=== PATIENT | male | born 1970 | race African-American/Black ===

== ENCOUNTER 2019-10-20 11:16 | Emergency (ER) | payer BC ==
[~2019-10-20] VITALS: Ht 182.9 cm; Wt 95.4 kg
[~2019-10-20 11:16] MED LIST: AMLO10TA8 PO; LISI-334 PO; OMEP20CA16 PO
[2019-10-20 11:33] VITALS: BP 166/89
[2019-10-20] MEDS ORDERED: MORPHINE SULFATE 4 MG/ML VIAL. IV ONE (12:00)
[2019-10-20] MEDS ORDERED: IV NORMAL SALINE 1000ML BAG 1,000 ML IV ONE (12:00)
[2019-10-20] MEDS ORDERED: ONDANSETRON PF 4 MG/2 ML VIAL. IVP ONE (12:00)
[2019-10-20 12:28] LABS: CALCIUM 9.5 mg/dL (8.5-10.1); CREATININE 2.2 mg/dL (0.7-1.3); GFR 38.7; POTASSIUM 4.1 mmol/L (3.5-5.1)
[2019-10-20 12:32] LABS: BASO % 0 % (0-3); EOS % 0 % (0-3); HEMATOCRIT 45.4 % (39.0-53.0); HEMOGLOBIN 15.9 g/dL (13.0-17.5); LYMPH # 1.8 x10^3/uL (1.0-4.8); LYMPH % 15 % (24-48); MEAN CORPUSCULAR HEMOGLOBIN 35 pg (25-35); MEAN CORPUSCULAR HGB CONC 35 g/dL (31-37); MEAN CORPUSCULAR VOLUME 100 fL (79-100); MONO # 0.9 x10^3/uL (0.0-1.1); MONO % 7 % (0-9); NEUT # 9.9 x10^3/uL (1.8-7.7); NEUT % 78 % (31-73); PLATELET COUNT 265 x10^3/uL (140-400); RED BLOOD COUNT 4.55 x10^6/uL (4.30-5.70); RED CELL DISTRIBUTION WIDTH 13.2 % (11.5-14.5); WHITE BLOOD COUNT 12.7 x10^3/uL (4.0-11.0)
[2019-10-20 12:38] LABS: ALBUMIN 4.3 g/dL (3.4-5.0); TOTAL BILIRUBIN 0.9 mg/dL (0.2-1.0); TOTAL PROTEIN 8.7 g/dL (6.4-8.2)
[2019-10-20] MEDS ORDERED: fentaNYL PF VIAL 100 MCG/2 ML VIAL IVP ONE (13:15)
[2019-10-20 13:32] LABS: BILIRUBIN,URINE NEGATIVE (NEG); CLARITY,URINE CLEAR; COLOR,URINE YELLOW; NITRITE,URINE NEGATIVE (NEG); PH,URINE 5.5 (<5.0-8.0); PROTEIN,URINE 30 mg/dL (NEG-TRACE); UROBILINOGEN,URINE 0.2 mg/dL (0.2 mg/dL)
[2019-10-20 13:50] LABS: BACTERIA,URINE 0 /HPF (0-FEW); RBC,URINE 0 /HPF (0-2); SQUAMOUS EPITHELIAL CELL,UR OCC /LPF; WBC,URINE 0 /HPF (0-4)
[2019-10-20] MEDS ORDERED: HYDROmorphone 2 MG/ML VIAL IV ONE (14:15)
--- NOTE | 2019-10-20 14:37 | RAD ---
EXAM: Abdomen and pelvis CT without intravenous contrast. HISTORY: Pain. TECHNIQUE: Computed tomographic images of the abdomen and pelvis were obtained without contrast. Multiplanar reformatting was performed. *One or more of the following individualized dose reduction techniques were utilized for this examination: 1. Automated exposure control. 2. Adjustment of the mA and/or kV according to patient size. 3. Use of iterative reconstruction technique. COMPARISON: 10/19/2019. FINDINGS: Evaluation of the lower thorax demonstrates no infiltrate or pleural effusion. The heart is normal in size. No hepatic lesion is seen. The gallbladder, pancreas, spleen and adrenal glands are unremarkable. There is no hydronephrosis or convincing solid or cystic renal lesion on this noncontrast exam. The bladder wall is thickened due to underdistention. The appendix is prominent in caliber, measuring 7 mm. However, there is gas within a portion of the appendiceal lumen and no significant surrounding stranding or lymphadenopathy. The combination of these findings favors a physiologic etiology rather than appendicitis. There is no bowel obstruction. There is no abnormal bowel wall thickening. There is aortobiiliac atherosclerosis. There is no suspicious osseous lesion. There are degenerative changes involving the lumbar spine. IMPRESSION: 1. Stable prominent appendiceal caliber. The absence of significant surrounding stranding, absence of significant surrounding lymphadenopathy and presence of gas within the appendiceal lumen favors a physiologic etiology rather than appendicitis. Correlate with physical exam findings and laboratory values. 2. Bladder wall thickening likely due to relative under distention. Electronically signed by: Kenzie Carrasco MD (10/20/2019 2:34 PM) [id number]
--- NOTE | 2019-10-20 14:48 | PHYS DOC ---
Past Medical History Past Medical History: Hypertension Past Surgical History: Other Additional Past Surgical Histo: CARDIAC-UNKNOWN Smoking Status: Current Every Day Smoker Alcohol Use: Heavy General Adult EDM: Chief Complaint: ABDOMINAL PAIN HPI: HPI: Patient is a 48 year old male who presents with complaints of vomiting several times over the past 3 days, also complains that he has not had a bowel movement in over 2 days. Patient states he usually has a normal bowel movement every day. Patient denies any diarrhea. Complains of generalized abdominal pain which started after his vomiting that he rates at 10/10. Patient describes this pain is a burning and cramping sensation. Patient denies any fever chills, patient denies any recent exposure to COVID-19. Patient reports that he has been told that he has a history of pancreatitis, but states he does not drink alcohol so he is not sure why he was ever diagnosed with this. Patient denies any changes in visual acuity, any nasal congestion or sore throat, cough or shortness of breath. Patient denies any pain in his chest or swelling of his extremities. Patient denies any problems urinating, denies back pain or pain in his joints. Patient denies any skin rashes, headaches, focal weaknesses, or sensory changes. Patient denies any swelling of his glands, any increased thirst or increased urination. Patient denies any recent life changes, any anxieties or depressions. Patient denies any homicidal suicidal ideations. Review of Systems: Review of Systems: Constitutional: Denies fever or chills. Eyes: Denies change in visual acuity. HENT: Denies nasal congestion or sore throat. Respiratory: Denies cough or shortness of breath. Cardiovascular: Denies chest pain or edema. GI: Patient complains of generalized abdominal pain and cramping with nausea and vomiting clear vomitus several times over the past 3 days denies constipation, blood in the stool, or diarrhea : Denies dysuria. Musculoskeletal: Denies back pain or joint pain. Integument: Denies rash. Neurologic: Denies headache, focal weakness or sensory changes. Endocrine: Denies polyuria or polydipsia. Lymphatic: Denies swollen glands. Psychiatric: Denies depression or anxiety. Patient denies recent life changes, denies homicidal or suicidal ideation. Heart Score: Risk Factors: Risk Factors: DM, Current or recent (<one month) smoker, HTN, HLP, family history of CAD, obesity. Risk Scores: Score 0 - 3: 2.5% MACE over next 6 weeks - Discharge Home Score 4 - 6: 20.3% MACE over next 6 weeks - Admit for Clinical Observation Score 7 - 10: 72.7% MACE over next 6 weeks - Early Invasive Strategies Family History: Family History: Patient states that his mother had a history of congestive heart failure but has since , patient states he does not know the health history of his father, who is . Current Medications: Current Medications Medications (Trade) Dose Ordered Sig/Amy Start Time Stop Time Status Last Admin Dose Admin Fentanyl Citrate (Fentanyl 2ml Vial) 50 mcg 1X ONCE 10/20/19 13:15 10/20/19 13:16 DC 10/20/19 13:22 50 MCG Hydromorphone HCl (Dilaudid) 1 mg 1X ONCE 10/20/19 14:15 10/20/19 14:17 DC 10/20/19 14:38 1 MG Morphine Sulfate (Morphine Sulfate) 4 mg 1X ONCE 10/20/19 12:00 10/20/19 12:05 DC 10/20/19 12:38 4 MG Ondansetron HCl (Zofran) 4 mg 1X ONCE 10/20/19 12:00 10/20/19 12:05 DC 10/20/19 12:38 4 MG Sodium Chloride 1,000 ml @ 1,000 mls/hr 1X ONCE 10/20/19 12:00 10/20/19 12:59 DC 10/20/19 12:37 1,000 MLS/HR Allergies: Allergies: Allergies Coded Allergies Type Severity Reaction Last Updated Verified No Known Drug Allergies 03/30/19 No Physical Exam: PE: Constitutional: Well developed, well nourished, no acute distress, non-toxic appearance. Non-concerning for COVID-19. HENT: Normocephalic, atraumatic, bilateral external ears normal, oropharynx moist, no oral exudates, nose normal. Eyes: PERRLA, EOMI, conjunctiva normal, no discharge. 4 mm. Neck: Normal range of motion, no tenderness, supple, no stridor. Cardiovascular:Heart rate regular rhythm, no murmur, heart sounds S1-S2, no abnormalities noted per auscultation. Lungs & Thorax: Bilateral breath sounds clear to auscultation all lung newell. Abdomen: Bowel sounds normal all 4 quadrants to auscultation. Abdomen soft, with generalized tenderness to all 4 quadrants, without McBurney's point tenderness without psoas sign, without rebound tenderness. no masses, no pulsatile masses. Skin: Warm, dry, no erythema, no rash. Back: No tenderness, no CVA tenderness. Extremities: No tenderness, no cyanosis, no clubbing, ROM intact, no edema. Neurologic: Alert and oriented X 3, normal motor function, normal sensory function, no focal deficits noted. Psychologic: Affect normal, judgement normal, mood normal. Current Patient Data: Labs: Laboratory Tests Test 10/20/19 12:10 10/20/19 13:19 White Blood Count 12.7 x10^3/uL (4.0-11.0) H Red Blood Count 4.55 x10^6/uL (4.30-5.70) Hemoglobin 15.9 g/dL (13.0-17.5) Hematocrit 45.4 % (39.0-53.0) Mean Corpuscular Volume 100 fL (79-100) Mean Corpuscular Hemoglobin 35 pg (25-35) Mean Corpuscular Hemoglobin Concent 35 g/dL (31-37) Red Cell Distribution Width 13.2 % (11.5-14.5) Platelet Count 265 x10^3/uL (140-400) Neutrophils (%) (Auto) 78 % (31-73) H Lymphocytes (%) (Auto) 15 % (24-48) L Monocytes (%) (Auto) 7 % (0-9) Eosinophils (%) (Auto) 0 % (0-3) Basophils (%) (Auto) 0 % (0-3) Neutrophils # (Auto) 9.9 x10^3/uL (1.8-7.7) H Lymphocytes # (Auto) 1.8 x10^3/uL (1.0-4.8) Monocytes # (Auto) 0.9 x10^3/uL (0.0-1.1) Eosinophils # (Auto) 0.0 x10^3/uL (0.0-0.7) Basophils # (Auto) 0.0 x10^3/uL (0.0-0.2) Sodium Level 132 mmol/L (136-145) L Potassium Level 4.1 mmol/L (3.5-5.1) Chloride Level 94 mmol/L (98-107) L Carbon Dioxide Level 28 mmol/L (21-32) Anion Gap 10 (6-14) Blood Urea Nitrogen 37 mg/dL (8-26) H Creatinine 2.2 mg/dL (0.7-1.3) H Estimated GFR (Cockcroft-Gault) 38.7 BUN/Creatinine Ratio 17 (6-20) Glucose Level 121 mg/dL (70-99) H Calcium Level 9.5 mg/dL (8.5-10.1) Total Bilirubin 0.9 mg/dL (0.2-1.0) Aspartate Amino Transferase (AST) 25 U/L (15-37) Alanine Aminotransferase (ALT) 33 U/L (16-63) Alkaline Phosphatase 96 U/L (46-116) Total Protein 8.7 g/dL (6.4-8.2) H Albumin 4.3 g/dL (3.4-5.0) Albumin/Globulin Ratio 1.0 (1.0-1.7) Lipase 50 U/L (73-393) L Urine Collection Type Void Urine Color Yellow Urine Clarity Clear Urine pH 5.5 (<5.0-8.0) Urine Specific [place] 1.025 (1.000-1.030) Urine Protein 30 mg/dL (NEG-TRACE) Urine Glucose (UA) Negative mg/dL (NEG) Urine Ketones (Stick) Trace mg/dL (NEG) Urine Blood Negative (NEG) Urine Nitrite Negative (NEG) Urine Bilirubin Negative (NEG) Urine Urobilinogen Dipstick 0.2 mg/dL (0.2 mg/dL) Urine Leukocyte Esterase Negative (NEG) Urine RBC 0 /HPF (0-2) Urine WBC 0 /HPF (0-4) Urine Squamous Epithelial Cells Occ /LPF Urine Bacteria 0 /HPF (0-FEW) Urine Mucus Slight /LPF Laboratory Tests 10/20/19 12:10 Laboratory Tests 10/20/19 12:10 Vital Signs: Vital Signs Date Time Temp Pulse Resp B/P (MAP) Pulse Ox O2 Delivery O2 Flow Rate FiO2 10/20/19 11:33 97.7 108 18 166/89 (114) 100 Room Air 97.7 EKG: EKG: [] Radiology/Procedures: Radiology/Procedures: PROCEDURE: CT ABDOMEN PELVIS WO CONTRAST EXAM: Abdomen and pelvis CT without intravenous contrast. HISTORY: Pain. TECHNIQUE: Computed tomographic images of the abdomen and pelvis were obtained without contrast. Multiplanar reformatting was performed. *One or more of the following individualized dose reduction techniques were utilized for this examination: 1. Automated exposure control. 2. Adjustment of the mA and/or kV according to patient size. 3. Use of iterative reconstruction technique. COMPARISON: 10/19/2019. FINDINGS: Evaluation of the lower thorax demonstrates no infiltrate or pleural effusion. The heart is normal in size. No hepatic lesion is seen. The gallbladder, pancreas, spleen and adrenal glands are unremarkable. There is no hydronephrosis or convincing solid or cystic renal lesion on this noncontrast exam. The bladder wall is thickened due to underdistention. The appendix is prominent in caliber, measuring 7 mm. However, there is gas within a portion of the appendiceal lumen and no significant surrounding stranding or lymphadenopathy. The combination of these findings favors a physiologic etiology rather than appendicitis. There is no bowel obstruction. There is no abnormal bowel wall thickening. There is aortobiiliac atherosclerosis. There is no suspicious osseous lesion. There are degenerative changes involving the lumbar spine. IMPRESSION: 1. Stable prominent appendiceal caliber. The absence of significant surrounding stranding, absence of significant surrounding lymphadenopathy and presence of gas within the appendiceal lumen favors a physiologic etiology rather than appendicitis. Correlate with physical exam findings and laboratory values. 2. Bladder wall thickening likely due to relative under distention. Electronically signed by: Kenzie Carrasco MD (10/20/2019 2:34 PM) [id number] Course & Med Decision Making: Course & Med Decision Making Pertinent Labs and Imaging studies reviewed. (See chart for details) 48-year-old male patient presents emergency department with complaints of several bouts of vomiting clear fluids. Patient states he was at [facility] yesterday and they could not figure out what was going on so he decided to come here and see if we could figure out what is going on. Patient states that a few weeks ago he ate some codfish and immediately started throwing up with having a nonstop feeling of nausea. Vital signs were reviewed, labs reviewed, not concerning for infectious process, imaging obtained from [facility] concerning for possible early appendicitis, imaging ordered here was not concerning for infectious process, discussed with patient findings and need to follow-up with GI specialist. Patient states that he would like a prescription for pain medicines to go home and he would follow-up with a GI specialist soon. Patient did not have any vomiting episodes during the emergency department stay. Upon reexamination patient states he feels a lot better, no abdominal pain noted upon reexamination. Discussed with patient discharge planning to go home with prescription of 10 count Vicodin 5/325. Patient is to follow-up with GI specialist soon, discussed return to emergency department concerns, patient was agreeable to discharge planning, had no further questions or concerns, patient discharged home. Dragon Disclaimer: [email or web address] Disclaimer: This electronic medical record was generated, in whole or in part, using a voice recognition dictation system. 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 Scripts Hydrocodone/Apap 5-325 (NORCO 5-325 TABLET) 1 Each Tablet 1 TAB PO PRN Q6HRS PRN for PAIN, #10 TAB 0 Refills Prov: NGOZI KIDD APRN 10/20/19 Justicifation of Admission Dx: Justifications for Admission: Justification of Admission Dx: N/A NGOZI KIDD APRN Oct 20, 2019 14:48
[2019-10-20] MEDS ORDERED: HYDR-3164 PO (15:45)
== END 2019-10-20 16:21 | disposition home or self-care (01) ==
LOC: ER 11:16
DX: R10.84 Generalized abdominal pain (principal); R11.2 Nausea with vomiting, unspecified; I10 Essential (primary) hypertension; F17.200 Nicotine dependence, unspecified, uncomplicated; F10.10 Alcohol abuse, uncomplicated; Z98.890 Other specified postprocedural states
CPT/HCPCS: 36415; 74176; 80053; 81001; 83690; 85025; 96361; 96374; 96375; 99284; J1170; J2270; J2405; J3010; J7030

== ENCOUNTER 2019-10-26 11:06 | Emergency (ER) | payer BC ==
[~2019-10-26] VITALS: Ht 182.9 cm; Wt 95.0 kg
[~2019-10-26 11:06] MED LIST changes: +HYDR-3164 PO
[2019-10-26] MEDS ORDERED: fentaNYL PF VIAL 100 MCG/2 ML VIAL IV ONE (12:45)
[2019-10-26] MEDS ORDERED: ONDANSETRON PF 4 MG/2 ML VIAL. IV ONE (12:45)
[2019-10-26] MEDS ORDERED: IV NORMAL SALINE 1000ML BAG 1,000 ML IV ONE ×2 (12:45→16:00)
[2019-10-26 12:50] LABS: BASO % 0 % (0-3); EOS % 0 % (0-3); HEMOGLOBIN 17.2 g/dL (13.0-17.5); LYMPH # 3.5 x10^3/uL (1.0-4.8); LYMPH % 25 % (24-48); MEAN CORPUSCULAR HEMOGLOBIN 34 pg (25-35); MEAN CORPUSCULAR HGB CONC 35 g/dL (31-37); MEAN CORPUSCULAR VOLUME 98 fL (79-100); MONO # 1.4 x10^3/uL (0.0-1.1); MONO % 10 % (0-9); NEUT # 9.3 x10^3/uL (1.8-7.7); NEUT % 65 % (31-73); PLATELET COUNT 308 x10^3/uL (140-400); RED BLOOD COUNT 5.03 x10^6/uL (4.30-5.70); RED CELL DISTRIBUTION WIDTH 12.9 % (11.5-14.5); WHITE BLOOD COUNT 14.3 x10^3/uL (4.0-11.0)
[2019-10-26 13:01] LABS: CALCIUM 9.9 mg/dL (8.5-10.1); CREATININE 1.8 mg/dL (0.7-1.3); GFR 48.8; POTASSIUM 3.9 mmol/L (3.5-5.1)
[2019-10-26 13:07] LABS: ALBUMIN 4.6 g/dL (3.4-5.0); MAGNESIUM 2.2 mg/dL (1.8-2.4); TOTAL BILIRUBIN 0.8 mg/dL (0.2-1.0); TOTAL PROTEIN 9.2 g/dL (6.4-8.2)
[2019-10-26] MEDS ORDERED: IOHEXOL 300 MG/ML 100ML VIAL. IV ONE (13:30)
[2019-10-26] MEDS ORDERED: CONTRAST GIVEN. MC PRN (13:45)
--- NOTE | 2019-10-26 13:57 | PHYS DOC ---
Past Medical History Past Medical History: Hypertension Past Surgical History: Other Additional Past Surgical Histo: CARDIAC-UNKNOWN Smoking Status: Current Every Day Smoker Alcohol Use: Heavy General Adult EDM: Chief Complaint: CONSTIPATION HPI: HPI: Patient is a 48 year old male who presents to the emergency department with generalized abdominal pain, constipation, decreased urination, decreased appetite and nausea and vomiting that started 2 days ago. Patient was seen in the emergency department October 20, 2019 and was treated for constipation and dehydration. He was sent home with magnesium citrate. He reports after drinking the magnesium citrate he did have a bowel movement but that was his last bowel movement 2 days ago. He reports that he has not urinated and has not had anything to eat in 2 days. Patient states that he has vomited 10 times today, there is no blood in his vomit. Patient denies cough, shortness of air, fever, diarrhea, and chest pain. Patient's abdominal pain is generalized. He rates it 10 out of 10, he has not tried any treatment at home, no aggravating or alleviating factors, he describes the abdominal pain as a constant punching pain. Review of Systems: Review of Systems: Constitutional: Denies fever or chills. [] Eyes: Denies change in visual acuity. [] HENT: Denies nasal congestion or sore throat. [] Respiratory: Denies cough or shortness of breath. [] Cardiovascular: Denies chest pain or edema. [] GI: See HPI : Denies dysuria. [] Musculoskeletal: Denies back pain or joint pain. [] Integument: Denies rash. [] Neurologic: Denies headache, focal weakness or sensory changes. [] Psychiatric: Denies depression or anxiety. [] Heart Score: Risk Factors: Risk Factors: DM, Current or recent (<one month) smoker, HTN, HLP, family history of CAD, obesity. Risk Scores: Score 0 - 3: 2.5% MACE over next 6 weeks - Discharge Home Score 4 - 6: 20.3% MACE over next 6 weeks - Admit for Clinical Observation Score 7 - 10: 72.7% MACE over next 6 weeks - Early Invasive Strategies Current Medications: Current Medications Medications (Trade) Dose Ordered Sig/Amy Start Time Stop Time Status Last Admin Dose Admin Fentanyl Citrate (Fentanyl 2ml Vial) 50 mcg 1X ONCE 10/26/19 12:45 10/26/19 12:46 DC 10/26/19 12:56 50 MCG Info (CONTRAST GIVEN -- Rx MONITORING) 1 each PRN DAILY PRN 10/26/19 13:45 10/28/19 13:44 Iohexol (Omnipaque 300 Mg/ml) 60 ml 1X ONCE 10/26/19 13:30 10/26/19 13:32 DC 10/26/19 13:30 60 ML Ondansetron HCl (Zofran) 4 mg 1X ONCE 10/26/19 12:45 10/26/19 12:46 DC 10/26/19 12:55 4 MG Sodium Chloride 1,000 ml @ 1,000 mls/hr 1X ONCE 10/26/19 12:45 10/26/19 13:44 DC 10/26/19 12:55 1,000 MLS/HR Allergies: Allergies: Allergies Coded Allergies Type Severity Reaction Last Updated Verified No Known Drug Allergies 03/30/19 No Physical Exam: PE: Constitutional: Well developed, well nourished, no acute distress, non-toxic appearance. [] HENT: Normocephalic, atraumatic, bilateral external ears normal, oropharynx dry, nose normal. [] Eyes: PERRLA, EOMI, conjunctiva normal, no discharge. [] Neck: Normal range of motion, no stridor. [] Cardiovascular:Heart rate regular rhythm, no murmur [] Lungs & Thorax: Bilateral breath sounds clear to auscultation, Respirations ev en and unlabored, no retractions, no respiratory distress [] Abdomen: Bowel sounds normal, soft, no masses, no pulsatile masses, tenderness with palpation of left upper and lower quadrant without rebound tenderness or guarding. [] Skin: Warm, dry, no erythema, no rash. [] Back: No tenderness, no CVA tenderness. [] Extremities: No tenderness, no cyanosis, no clubbing, ROM intact, no edema. [] Neurologic: Alert and oriented X 3, no focal deficits noted. [] Psychologic: Affect normal, judgement normal, mood normal. [] Current Patient Data: Labs: Laboratory Tests Test 10/26/19 12:30 White Blood Count 14.3 x10^3/uL (4.0-11.0) H Red Blood Count 5.03 x10^6/uL (4.30-5.70) Hemoglobin 17.2 g/dL (13.0-17.5) Hematocrit 49.0 % (39.0-53.0) Mean Corpuscular Volume 98 fL (79-100) Mean Corpuscular Hemoglobin 34 pg (25-35) Mean Corpuscular Hemoglobin Concent 35 g/dL (31-37) Red Cell Distribution Width 12.9 % (11.5-14.5) Platelet Count 308 x10^3/uL (140-400) Neutrophils (%) (Auto) 65 % (31-73) Lymphocytes (%) (Auto) 25 % (24-48) Monocytes (%) (Auto) 10 % (0-9) H Eosinophils (%) (Auto) 0 % (0-3) Basophils (%) (Auto) 0 % (0-3) Neutrophils # (Auto) 9.3 x10^3/uL (1.8-7.7) H Lymphocytes # (Auto) 3.5 x10^3/uL (1.0-4.8) Monocytes # (Auto) 1.4 x10^3/uL (0.0-1.1) H Eosinophils # (Auto) 0.0 x10^3/uL (0.0-0.7) Basophils # (Auto) 0.0 x10^3/uL (0.0-0.2) Sodium Level 127 mmol/L (136-145) L Potassium Level 3.9 mmol/L (3.5-5.1) Chloride Level 88 mmol/L (98-107) L Carbon Dioxide Level 31 mmol/L (21-32) Anion Gap 8 (6-14) Blood Urea Nitrogen 31 mg/dL (8-26) H Creatinine 1.8 mg/dL (0.7-1.3) H Estimated GFR (Cockcroft-Gault) 48.8 BUN/Creatinine Ratio 17 (6-20) Glucose Level 108 mg/dL (70-99) H Calcium Level 9.9 mg/dL (8.5-10.1) Magnesium Level 2.2 mg/dL (1.8-2.4) Total Bilirubin 0.8 mg/dL (0.2-1.0) Aspartate Amino Transferase (AST) 19 U/L (15-37) Alanine Aminotransferase (ALT) 32 U/L (16-63) Alkaline Phosphatase 100 U/L (46-116) Total Protein 9.2 g/dL (6.4-8.2) H Albumin 4.6 g/dL (3.4-5.0) Albumin/Globulin Ratio 1.0 (1.0-1.7) Lipase 55 U/L (73-393) L Laboratory Tests 10/26/19 12:30 Laboratory Tests 10/26/19 12:30 Vital Signs: Vital Signs Date Time Temp Pulse Resp B/P (MAP) Pulse Ox O2 Delivery O2 Flow Rate FiO2 10/26/19 12:56 Room Air 10/26/19 12:40 98.8 90 18 148/78 (101) 100 98.8 EKG: EKG: [] Radiology/Procedures: Radiology/Procedures: PROCEDURE: CT ABD PELV W/ IV CONTRST ONLY CT ABD PELV W/ IV CONTRST ONLY History: Reason: left sided abdominal pain / Spl. Instructions: OMNI 300 INJ 60 MLS / History: Technique: After the administration of intravenous contrast, CT imaging was performed of the abdomen and pelvis. Multiplanar images are reviewed. Exposure: One or more of the following individualized dose reduction techniques were utilized for this examination: 1. Automated exposure control 2. Adjustment of the mA and/or kV according to patient size 3. Use of iterative reconstruction technique. Comparison: October 20, 2019 Findings: Lower chest: No consolidation or pleural effusion. Abdomen and pelvis: Fatty infiltration along the falciform ligament. Tiny right inferior hepatic hypodensity, too small to further characterize. The spleen, adrenal glands, pancreas and gallbladder are unremarkable. No biliary ductal dilatation. Patent portal veins. Normal transit the kidneys. No hydronephrosis. No renal calculi. Normal appearance of the appendix with decreased caliber compared to prior. No adjacent inflammatory changes. No evidence of bowel obstruction. Mild ectasia of the infrarenal abdominal aorta measures 2.4 cm. Scattered atheromatous plaque. No pathologic lymphadenopathy. No ascites. Small fat-containing umbilical hernia. Bones: Multilevel lumbar spinal stenosis most prominent L5-S1. Impression: 1. No acute abdominal or pelvic pathology. [] Course & Med Decision Making: Course & Med Decision Making Pertinent Labs and Imaging studies reviewed. (See chart for details) Patient is a 48-year-old male coming in for abdominal pain, nausea vomiting, con stipation for 2 days. Work-up includes blood work, UA and a CT abdomen and pelvis. CBC is unremarkable, CMP shows a sodium of 127, BUN of 31, and creatinine of 1.8, UA unremarkable, CT abdomen and pelvis with IV contrast was unremarkable for any acute problem. Patient was dehydrated and was given 2 L of normal saline, 4 mg of Zofran for nausea and he received a total of 100 mics of fentanyl for pain. Patient reports that he feels better at this time and is ready to go home. Patient is able to maintain PO liquids. Prescription is written for Zofran, recommended clear liquids followed by brat diet and advance as tolerated. Patient verbalized an understanding of home care, medications, follow-up, and return to ED instructions and was in agreement with the plan of care. [] Dragon Disclaimer: Dragon Disclaimer: This electronic medical record was generated, in whole or in part, using a voice recognition dictation system. Departure Departure Impression: Primary Impression: Nausea & vomiting Qualified Codes: R11.2 - Nausea with vomiting, unspecified Additional Impressions: Dehydration Abdominal pain Qualified Codes: R10.84 - Generalized abdominal pain Disposition: 01 HOME, SELF-CARE Condition: STABLE Referrals: NO PCP (PCP) Patient Instructions: Abdominal Pain (Nonspecific), Dehydration, Adult, [id number], Nausea and Vomiting, [id number] Additional Instructions: Fill prescriptions and use them as directed. Recommend clear fluids for the next 24 hours. Then you may advance to bland foods such as bananas, rice, applesauce, and dry toast. Follow-up with your primary care doctor in the next 1-2 days. Return to the emergency room if your symptoms worsen. [facility] [address] [place] [address] [facility] [address] [place] [address] [facility] [address] [facility] [place] [address] [facility] [address] [place] [address] [facility] [address] [place] [address] [facility] [address] [place] [address] [address] [place] [address] [employer] [facility] [employer] [place] [address] [place] [address] [employer] [facility] [address] [place] [address] [facility] [address] [place] [address] Scripts Ondansetron Hcl (ONDANSETRON HCL) 4 Mg Tablet 1 TAB PO PRN Q6HRS PRN for NAUSEA/VOMITING for 3 Days, #10 TAB 0 Refills Prov: BRIAN ANTONIO D[employer]NUT BATTER MIXER 10/26/19 Justicifation of Admission Dx: Justifications for Admission: Justification of Admission Dx: N/A BRIAN ANTONIO D[employer]TER MIXER Oct 26, 2019 13:57
[2019-10-26] MEDS ORDERED: fentaNYL PF VIAL 100 MCG/2 ML VIAL IVP ONE (14:30)
--- NOTE | 2019-10-26 14:33 | RAD ---
CT ABD PELV W/ IV CONTRST ONLY History: Reason: left sided abdominal pain / Spl. Instructions: OMNI 300 INJ 60 MLS / History: Technique: After the administration of intravenous contrast, CT imaging was performed of the abdomen and pelvis. Multiplanar images are reviewed. Exposure: One or more of the following individualized dose reduction techniques were utilized for this examination: 1. Automated exposure control 2. Adjustment of the mA and/or kV according to patient size 3. Use of iterative reconstruction technique. Comparison: October 20, 2019 Findings: Lower chest: No consolidation or pleural effusion. Abdomen and pelvis: Fatty infiltration along the falciform ligament. Tiny right inferior hepatic hypodensity, too small to further characterize. The spleen, adrenal glands, pancreas and gallbladder are unremarkable. No biliary ductal dilatation. Patent portal veins. Normal transit the kidneys. No hydronephrosis. No renal calculi. Normal appearance of the appendix with decreased caliber compared to prior. No adjacent inflammatory changes. No evidence of bowel obstruction. Mild ectasia of the infrarenal abdominal aorta measures 2.4 cm. Scattered atheromatous plaque. No pathologic lymphadenopathy. No ascites. Small fat-containing umbilical hernia. Bones: Multilevel lumbar spinal stenosis most prominent L5-S1. Impression: 1. No acute abdominal or pelvic pathology. Electronically signed by: Omar Jose DO (10/26/2019 2:30 PM) [facility]
[2019-10-26 15:14] LABS: BILIRUBIN,URINE NEGATIVE (NEG); CLARITY,URINE CLEAR; COLOR,URINE YELLOW; NITRITE,URINE NEGATIVE (NEG); PROTEIN,URINE NEGATIVE (NEG-TRACE); UROBILINOGEN,URINE 0.2 mg/dL (0.2 mg/dL)
[2019-10-26 15:21] LABS: HYALINE CASTS, URINE MANY /HPF; SQUAMOUS EPITHELIAL CELL,UR FEW /LPF
[2019-10-26 15:23] LABS: BACTERIA,URINE 0 /HPF (0-FEW); RBC,URINE 0 /HPF (0-2)
[2019-10-26] MEDS ORDERED: ONDA-84 PO (16:25)
[2019-10-26 16:57] VITALS: BP 107/75
== END 2019-10-26 17:03 | disposition home or self-care (01) ==
LOC: ER 11:06
DX: E86.0 Dehydration (principal); R11.2 Nausea with vomiting, unspecified; R10.84 Generalized abdominal pain; I10 Essential (primary) hypertension; F17.200 Nicotine dependence, unspecified, uncomplicated; F10.20 Alcohol dependence, uncomplicated; Y90.9 Presence of alcohol in blood, level not specified
CPT/HCPCS: 36415; 74177; 80053; 81001; 83690; 83735; 85025; 96361; 96374; 96375; 96376; 99285; J2405; J3010; J7030; Q9967

== ENCOUNTER 2021-05-04 17:59 | Inpatient (IN) | payer BC, OTHER ==
[~2021-05-04] VITALS: Ht 182.9 cm; Wt 85.2 kg
[~2021-05-04 17:59] MED LIST changes: +AMLO-187 PO; -AMLO10TA8 PO; -LISI-334 PO; +LISI20TA18 PO; +ONDA-84 PO
[2021-05-04 20:00] VITALS: BP 107/54
--- NOTE | 2021-05-04 20:00 | NUR ---
The patient, AFSANEH WILKINSON, 50 y/o, M admitted by JEVON BARR MD, was given written information regarding hospital policies, unit procedures and contact persons. Valuables were checked and left with him.
[2021-05-04] MEDS ORDERED: LISI-130 PO (20:34)
[2021-05-04] MEDS ORDERED: ACETAMINOPHEN 325 MG TABLET. PO PRN (20:45)
[2021-05-04] MEDS ORDERED: ELECTROLYTE (NON-ICU) PROTOCOL. MC PRN (20:45)
[2021-05-04] MEDS ORDERED: oxyCODONE/APAP 5/325 1 TAB TABLET PO PRN (20:45)
[2021-05-04] MEDS ORDERED: CALCIUM CARBONATE 500 MG TAB.CHEW PO PRN (20:45)
[2021-05-04] MEDS ORDERED: ONDANSETRON PF 4 MG/2 ML VIAL. IVP PRN (20:45)
[2021-05-04] MEDS: SENNOSIDES/DOCUSATE 8.6/50MG TABLET. PO SCH (21:29)
[2021-05-04] MEDS: oxyCODONE/APAP 5/325 1 TAB TABLET PO PRN (21:29)
[2021-05-04] MEDS: ZOLPIDEM 5 MG TABLET. PO PRN (21:29)
[2021-05-04 21:32] LABS: BASO % 0 % (0-3); EOS % 0 % (0-3); HEMATOCRIT 42.1 % (39.0-53.0); HEMOGLOBIN 14.4 g/dL (13.0-17.5); LYMPH # 3.1 x10^3/uL (1.0-4.8); LYMPH % 24 % (24-48); MEAN CORPUSCULAR HEMOGLOBIN 34 pg (25-35); MEAN CORPUSCULAR HGB CONC 34 g/dL (31-37); MEAN CORPUSCULAR VOLUME 98 fL (79-100); MONO # 1.7 x10^3/uL (0.0-1.1); MONO % 13 % (0-9); NEUT % 62 % (31-73); PLATELET COUNT 267 x10^3/uL (140-400); RED BLOOD COUNT 4.28 x10^6/uL (4.30-5.70); RED CELL DISTRIBUTION WIDTH 13.7 % (11.5-14.5); WHITE BLOOD COUNT 12.9 x10^3/uL (4.0-11.0)
[2021-05-04] MEDS: HEPARIN for SUB-Q USE 5,000 UNIT/ML VIAL. SQ SCH (21:35)
--- NOTE | 2021-05-04 21:38 | PDOC1 ---
History and Physical Date of Service: DOS: DATE: 05/04/21 TIME: 21:30 Chief Complaint: Chief Complain: Nausea vomiting diarrhea History of Present Illness: HPI: Patient is a 50-year-old -[place] male presented to outside emergency department due to 5-day history of nausea vomiting decreased p.o. intake diarrhea and abdominal pain. Patient says the symptoms started after eating grilled chicken. Family at the same and are asymptomatic. Says he has had very decreased p.o. intake. Had not urinated in at least 72 hours until this morning when he tried to provide urine sample. At the outside hospital was found to have BUN up to 90 and creatinine above 12. Was recommended for transfer here and then. When I saw patient he was resting in bed complaining of bilateral flank pain. Somewhat confrontational. Asking about eating and drinking. Said his nausea and vomiting were improving somewhat with the fluids. Will check bladder scan to see if retaining any urine. Past Medical/Surgical History: PMH/PSH: Hypertension Allergies: Allergies: Coded Allergies: No Known Drug Allergies (Unverified , 03/30/19) Family History: Family History: Hypertension Social History: Social History: Denies alcohol tobacco use. Uses marijuana occasionally Current Medications: Current Medications Current Medications Ondansetron HCl (Zofran) 4 mg PRN Q6HRS PRN IVP NAUSEA/VOMITING Last administered on 05/04/21at 21:29; Start 05/04/21 at 20:45 Calcium Carbonate/ Glycine (Tums) 500 mg PRN Q3HRS PRN PO UPSET STOMACH; Start 05/04/21 at 20:45 Zolpidem Tartrate (Ambien) 5 mg PRN QHS PRN PO INSOMNIA, MAY REPEAT IN 1HR Last administered on 05/04/21at 21:29; Start 05/04/21 at 20:45 Info (Non-Icu Electrolyte Protocol) 1 ea PRN DAILY PRN MC SEE COMMENTS; Start 05/04/21 at 20:45 Oxycodone/ Acetaminophen (Percocet 5/325) 1 tab PRN Q4HRS PRN PO MILD PAIN, 1ST CHOICE; Start 05/04/21 at 20:45 Oxycodone/ Acetaminophen (Percocet 5/325) 2 tab PRN Q4HRS PRN PO MODERATE PAIN, SEVERE PAIN Last administered on 05/04/21at 21:29; Start 05/04/21 at 20:45 Acetaminophen (Tylenol) 650 mg PRN Q6HRS PRN PO Headaches, Temp > 101.5F; Start 05/04/21 at 20:45 Senna/Docusate Sodium (Senna Plus) 1 tab BID PO Last administered on 05/04/21at 21:29; Start 05/04/21 at 21:00 Heparin Sodium (Porcine) (Heparin Sodium) 5,000 unit Q8HRS SQ ; Start 05/04/21 at 22:00 Amlodipine Besylate (Norvasc) 10 mg DAILY PO ; Start 05/05/21 at 09:00 Pantoprazole Sodium (Protonix) 40 mg DAILYAC PO ; Start 05/05/21 at 07:30 Active Scripts Active Ondansetron Hcl 4 Mg Tablet 1 Tab PO PRN Q6HRS PRN 3 Days [place] 5-325 Tablet (Acetaminophen/Hydrocodone Bitart) 1 Each Tablet 1 Tab PO PRN Q6HRS PRN Reported Lisinopril 40 Mg Tablet 1 Tab PO DAILY Omeprazole 20 Mg Capsule.dr 20 Mg PO DAILY Amlodipine Besylate 10 Mg Tablet 10 Mg PO DAILY ROS: Review of Systems Review of System Unless noted in HPI 14 point review of systems was negative Physical Exam: Vital Signs: Vital Signs Date Time Temp Pulse Resp B/P (MAP) Pulse Ox O2 Delivery O2 Flow Rate FiO2 05/04/21 21:29 18 98 Room Air 05/04/21 20:00 98.2 81 107/54 (71) 98.2 Physcial Exam: GEN: No apparent distress. Alert and oriented HEENT: Normal cephalic, atraumatic, external auditory canals are patent EYES: Extraocular muscles are intact, pupil are equally round and reactive to light and accommodation MUSCULOSKELETAL: Well developed , well nourished, good range of motion ENDOCRINE: No thyromegaly was palpated LYMPHATICS: No cervical chain or axillary nodes were noted HEMATOPOIETIC: No bruising NECK: Supple, no JVD, no thyromegaly was noted LUNGS: Clear to auscultation in all lung newell without rhonchi or wheezing HEART: RRR, S!, S2 present. Peripheral pulses intact, no obvious murmurs noted ABDOMEN: Soft, nontender. Positive bowel sounds, no organomegaly, normal bowel sounds EXTREMITIES: Without clubbing, cyanosis, or edema. Pedal pulses intact. Negative Homans sign NEUROLOGIC: Normal speech and tone. A&O x 3, moves all extremities, no obvious focal deficits PSYCHIATRIC: Normal affect, normal mood. Stable SKIN: No ulcerations or rashes, good skin turgor, no jaundice VASCULAR: Good capillary refill, neurovascular bundle appears to be intact Labs: Labs: From outside hospital BUN 90, creatinine 12, anion gap 22, white blood cells 13.7 Assessment/Plan Assessment/Plan Acute kidney injury on CKD? Secondary to dehydration vasomotor nephropathy, history hypertension substance abuse -Patient transferred from [facility] for acute kidney injury. -Has previous labs from 2020 with elevated creatinine around 2. Baseline unknown right now. Labs from outside hospital showed a creatinine of 12. Repeat here -Nephrology consult -Urinalysis -Check bladder scan. Straight cath if needed -If retaining urine can try Flomax -DVT prophylaxis -Renal diet for now -Home meds resumed as indicated. Justifications for Admission Other Justification JEVON BARR MD May 04, 2021 21:37
[2021-05-04 21:47] LABS: ALBUMIN 3.7 g/dL (3.4-5.0); ALBUMIN/GLOBULIN RATIO 0.9 (1.0-1.7); CALCIUM 7.9 mg/dL (8.5-10.1); CREATININE 9.7 mg/dL (0.7-1.3); GFR 6.9; TOTAL BILIRUBIN 0.7 mg/dL (0.2-1.0); TOTAL PROTEIN 7.9 g/dL (6.4-8.2)
[2021-05-05 03:10] VITALS: BP 108/73
[2021-05-05 04:03] LABS: BILIRUBIN,URINE NEGATIVE (NEG); CLARITY,URINE CLEAR; COLOR,URINE YELLOW; NITRITE,URINE NEGATIVE (NEG); PROTEIN,URINE 30 mg/dL (NEG-TRACE); UROBILINOGEN,URINE 0.2 mg/dL (0.2 mg/dL)
[2021-05-05 04:41] LABS: BACTERIA,URINE 0 /HPF (0-FEW); HYALINE CASTS, URINE FEW /HPF; RBC,URINE OCC /HPF (0-2); WBC,URINE OCC /HPF (0-4)
[2021-05-05] MEDS: HEPARIN for SUB-Q USE 5,000 UNIT/ML VIAL. SQ SCH ×3 (05:29→20:54)
--- NOTE | 2021-05-05 06:55 | RAD ---
Renal ultrasound complete History: Reason: abran / Spl. Instructions: / History: Sonographic examination of the kidneys was performed and multiple static images were obtained. Right kidney: The right kidney is seen with no hydronephrosis and measures 10.3 cm in length. Left kidney: The left kidney is seen with no hydronephrosis and measures 10.3 cm in length. Urinary bladder: The urinary bladder is seen with bilateral ureteral jets. Impression: No hydronephrosis. Electronically signed by: Truman Waddell III, MD (05/05/2021 6:53 AM) [facility]
[2021-05-05 07:00] VITALS: BP 115/67
[2021-05-05] MEDS: PANTOPRAZOLE 40 MG TABLET.DR. PO SCH (09:00)
[2021-05-05] MEDS: SENNOSIDES/DOCUSATE 8.6/50MG TABLET. PO SCH ×2 (09:05→20:52)
--- NOTE | 2021-05-05 10:36 | PDOC ---
[employer] PROGRESS NOTE Date of Service DOS: DATE: 05/05/21 TIME: 10:34 Chief Complaint Chief Complaint GAGE versus chronic kidney disease Dehydration Hypertension Substance abuse History of Present Illness History of Present Illness 05/05/2021 Patient seen and examined Lambert discussed with RN Chart reviewed Discussed with case technician Vitals/I&O Vitals/I&O: Vital Signs Date Time Temp Pulse Resp B/P (MAP) Pulse Ox O2 Delivery O2 Flow Rate FiO2 05/05/21 09:04 67 115/67 05/05/21 08:00 Room Air 05/05/21 07:00 98.1 17 97 98.1 I & O 05/04/21 05/04/21 05/05/21 15:00 23:00 07:00 Intake Total 480 ml Output Total 1670 ml Balance -1190 ml Labs Labs: Laboratory Tests Test 05/04/21 21:15 05/05/21 02:55 05/05/21 07:49 White Blood Count 12.9 x10^3/uL (4.0-11.0) Red Blood Count 4.28 x10^6/uL (4.30-5.70) Hemoglobin 14.4 g/dL (13.0-17.5) Hematocrit 42.1 % (39.0-53.0) Mean Corpuscular Volume 98 fL (79-100) Mean Corpuscular Hemoglobin 34 pg (25-35) Mean Corpuscular Hemoglobin Concent 34 g/dL (31-37) Red Cell Distribution Width 13.7 % (11.5-14.5) Platelet Count 267 x10^3/uL (140-400) Neutrophils (%) (Auto) 62 % (31-73) Lymphocytes (%) (Auto) 24 % (24-48) Monocytes (%) (Auto) 13 % (0-9) Eosinophils (%) (Auto) 0 % (0-3) Basophils (%) (Auto) 0 % (0-3) Neutrophils # (Auto) 8.0 x10^3/uL (1.8-7.7) Lymphocytes # (Auto) 3.1 x10^3/uL (1.0-4.8) Monocytes # (Auto) 1.7 x10^3/uL (0.0-1.1) Eosinophils # (Auto) 0.0 x10^3/uL (0.0-0.7) Basophils # (Auto) 0.0 x10^3/uL (0.0-0.2) Sodium Level 138 mmol/L (136-145) Potassium Level 4.0 mmol/L (3.5-5.1) Chloride Level 96 mmol/L (98-107) Carbon Dioxide Level 24 mmol/L (21-32) Anion Gap 18 (6-14) Blood Urea Nitrogen 97 mg/dL (8-26) Creatinine 9.7 mg/dL (0.7-1.3) Estimated GFR (Cockcroft-Gault) 6.9 BUN/Creatinine Ratio 10 (6-20) Glucose Level 92 mg/dL (70-99) Calcium Level 7.9 mg/dL (8.5-10.1) Total Bilirubin 0.7 mg/dL (0.2-1.0) Aspartate Amino Transf (AST/SGOT) 5 U/L (15-37) Alanine Aminotransferase (ALT/SGPT) 22 U/L (16-63) Alkaline Phosphatase 95 U/L (46-116) Creatine Kinase 391 U/L (39-308) Total Protein 7.9 g/dL (6.4-8.2) Albumin 3.7 g/dL (3.4-5.0) Albumin/Globulin Ratio 0.9 (1.0-1.7) Thyroid Stimulating Hormone (TSH) 0.302 uIU/mL (0.358-3.74) Urine Collection Type Unknown Urine Color Yellow Urine Clarity Clear Urine pH 5.0 (<5.0-8.0) Urine Specific [place] 1.020 (1.000-1.030) Urine Protein 30 mg/dL (NEG-TRACE) Urine Glucose (UA) Negative mg/dL (NEG) Urine Ketones (Stick) Negative mg/dL (NEG) Urine Blood Negative (NEG) Urine Nitrite Negative (NEG) Urine Bilirubin Negative (NEG) Urine Urobilinogen Dipstick 0.2 mg/dL (0.2 mg/dL) Urine Leukocyte Esterase Negative (NEG) Urine RBC Occ /HPF (0-2) Urine WBC Occ /HPF (0-4) Urine Squamous Epithelial Cells Occ /LPF Urine Bacteria 0 /HPF (0-FEW) Urine Hyaline Casts Few /HPF Urine Mucus Mod /LPF Glucose (Fingerstick) 84 mg/dL (70-99) Assessment and Plan Assessmemt and Plan Acute kidney injury on CKD? Secondary to dehydration vasomotor nephropathy, history hypertension substance abuse -Patient transferred from [facility] for acute kidney injury. -Has previous labs from 2019 with elevated creatinine around 2. Baseline unknown right now. Labs from outside hospital showed a creatinine of 12. Repeat here -Await nephrology consult -Urinalysis -Check bladder scan. Straight cath if needed -If retaining urine can try Flomax -DVT prophylaxis -Renal diet for now -Home meds resumed as indicated. Comment Review of Relevant I have reviewed the following items cherelle (where applicable) has been applied. Medications: Current Medications Medications (Trade) Dose Ordered Sig/Amy Route PRN Reason Start Time Stop Time Status Last Admin Dose Admin Ondansetron HCl (Zofran) 4 mg PRN Q6HRS PRN IVP NAUSEA/VOMITING 05/04/21 20:45 05/04/21 21:29 Zolpidem Tartrate (Ambien) 5 mg PRN QHS PRN PO INSOMNIA, MAY REPEAT IN 1HR 05/04/21 20:45 05/04/21 21:29 Oxycodone/ Acetaminophen (Percocet 5/325) 2 tab PRN Q4HRS PRN PO MODERATE PAIN, SEVERE PAIN 05/04/21 20:45 05/04/21 21:29 Senna/Docusate Sodium (Senna Plus) 1 tab BID PO 05/04/21 21:00 05/05/21 09:05 Heparin Sodium (Porcine) (Heparin Sodium) 5,000 unit Q8HRS SQ 05/04/21 22:00 05/05/21 05:29 Amlodipine Besylate (Norvasc) 10 mg DAILY PO 05/05/21 09:00 05/05/21 09:04 Pantoprazole Sodium (Protonix) 40 mg DAILYAC PO 05/05/21 07:30 05/05/21 09:00 Justifications for Admission Other Justification MAGY SERRATO III DO May 05, 2021 10:36
[2021-05-05 11:00] VITALS: BP 123/79
[2021-05-05] MEDS: IV NORMAL SALINE 1000ML BAG 1,000 ML IV SCH ×2 (12:15→20:56)
--- NOTE | 2021-05-05 14:15 | PDOC2 ---
CONSULT Date of Consult Date of Consult DATE: 05/05/21 TIME: 14:07 Reason for Consult Reason for Consult: GAGE Referring Physician Referring Physician: MOMO Identification/Chief Complaint Chief Complaint N/V/D Source Source: Chart review, Patient History of Present Illness Reason for Visit: THIS IS A 50 YR OLD WITH N/V/D FOR ABOUT A WEEK. HAS NOTED DECREASING UO WELL. CR OF 9.7. HE IS NOT AWARE OF ANY CKD. CR OF 1.8 IN SEPTEMBER OF 2019. DENIED ANY NEPHROTOXINS. BLADDER SCAN NEG AND RENAL SONO NEG FOR ACUTE FINDINGS. CR WAS APPARENTLY 12 AT OUTSIDE HOSPITAL. STATES IN THE PAST HE HAS BEEN TOLD HE HAS PANCREAS AND POSSIBLE GB ISSUES Past Medical History Cardiovascular: HTN GI: Constipation, GERD Renal/: Chronic renal insuff Past Surgical History Past Surgical History: No pertinent history Family History Family History: Hypertension Social History No ALCOHOL: none Drugs: None Lives: with Family Current Medications Current Medications Current Medications Ondansetron HCl (Zofran) 4 mg PRN Q6HRS PRN IVP NAUSEA/VOMITING Last administ ered on 05/04/21at 21:29; Start 05/04/21 at 20:45 Calcium Carbonate/ Glycine (Tums) 500 mg PRN Q3HRS PRN PO UPSET STOMACH; Start 05/04/21 at 20:45 Zolpidem Tartrate (Ambien) 5 mg PRN QHS PRN PO INSOMNIA, MAY REPEAT IN 1HR Last administered on 05/04/21at 21:29; Start 05/04/21 at 20:45 Info (Non-Icu Electrolyte Protocol) 1 ea PRN DAILY PRN MC SEE COMMENTS; Start 05/04/21 at 20:45 Oxycodone/ Acetaminophen (Percocet 5/325) 1 tab PRN Q4HRS PRN PO MILD PAIN, 1ST CHOICE; Start 05/04/21 at 20:45 Oxycodone/ Acetaminophen (Percocet 5/325) 2 tab PRN Q4HRS PRN PO MODERATE PAIN, SEVERE PAIN Last administered on 05/04/21at 21:29; Start 05/04/21 at 20:45 Acetaminophen (Tylenol) 650 mg PRN Q6HRS PRN PO Headaches, Temp > 101.5F; Start 05/04/21 at 20:45 Senna/Docusate Sodium (Senna Plus) 1 tab BID PO Last administered on 05/05/21at 09:05; Start 05/04/21 at 21:00 Heparin Sodium (Porcine) (Heparin Sodium) 5,000 unit Q8HRS SQ Last administered on 05/05/21at 05:29; Start 05/04/21 at 22:00 Amlodipine Besylate (Norvasc) 10 mg DAILY PO Last administered on 05/05/21at 09:04; Start 05/05/21 at 09:00 Pantoprazole Sodium (Protonix) 40 mg DAILYAC PO Last administered on 05/05/21at 09:00; Start 05/05/21 at 07:30 Sodium Chloride 1,000 ml @ 75 mls/hr [id number] IV Last administered on 05/05/21at 12:15; Start 05/05/21 at 12:15 Active Scripts Active Ondansetron Hcl 4 Mg Tablet 1 Tab PO PRN Q6HRS PRN 3 Days [place] 5-325 Tablet (Acetaminophen/Hydrocodone Bitart) 1 Each Tablet 1 Tab PO PRN Q6HRS PRN Reported Lisinopril 40 Mg Tablet 1 Tab PO DAILY Omeprazole 20 Mg Capsule.dr 20 Mg PO DAILY Amlodipine Besylate 10 Mg Tablet 10 Mg PO DAILY Allergies Allergies: Coded Allergies: No Known Drug Allergies (Unverified , 03/30/19) ROS General: YES: Fatigue, Malaise PSYCHOLOGICAL ROS: YES: Anxiety Eyes: Yes Decreased vision Respiratory: YES: Cough Gastrointestinal: Yes Nausea, Yes Vomiting, Yes Diarrhea Genitourinary: YES Other (DECREASED UO) Musculoskeletal: Yes Muscular Weakness Neurological: Yes Weakness Skin: Yes Dry Skin Physical Exam General: Alert, Oriented X3, No acute distress HEENT: Atraumatic Lungs: Clear to auscultation Heart: Regular rate Abdomen: Normal bowel sounds, Soft, No tenderness Extremities: No clubbing Skin: No rashes Neuro: Normal speech Psych/Mental Status: Mental status NL, Mood NL MUSCULOSKELETAL: No joint tenderness, No deformity, No swelling Vitals VITALS Vital Signs Date Time Temp Pulse Resp B/P (MAP) Pulse Ox O2 Delivery O2 Flow Rate FiO2 05/05/21 11:00 98.2 71 17 123/79 (94) 97 Room Air 98.2 05/05/21 07:00 Labs Labs Laboratory Tests Test 05/04/21 21:15 05/05/21 02:55 05/05/21 07:49 White Blood Count 12.9 x10^3/uL (4.0-11.0) Red Blood Count 4.28 x10^6/uL (4.30-5.70) Hemoglobin 14.4 g/dL (13.0-17.5) Hematocrit 42.1 % (39.0-53.0) Mean Corpuscular Volume 98 fL (79-100) Mean Corpuscular Hemoglobin 34 pg (25-35) Mean Corpuscular Hemoglobin Concent 34 g/dL (31-37) Red Cell Distribution Width 13.7 % (11.5-14.5) Platelet Count 267 x10^3/uL (140-400) Neutrophils (%) (Auto) 62 % (31-73) Lymphocytes (%) (Auto) 24 % (24-48) Monocytes (%) (Auto) 13 % (0-9) Eosinophils (%) (Auto) 0 % (0-3) Basophils (%) (Auto) 0 % (0-3) Neutrophils # (Auto) 8.0 x10^3/uL (1.8-7.7) Lymphocytes # (Auto) 3.1 x10^3/uL (1.0-4.8) Monocytes # (Auto) 1.7 x10^3/uL (0.0-1.1) Eosinophils # (Auto) 0.0 x10^3/uL (0.0-0.7) Basophils # (Auto) 0.0 x10^3/uL (0.0-0.2) Sodium Level 138 mmol/L (136-145) Potassium Level 4.0 mmol/L (3.5-5.1) Chloride Level 96 mmol/L (98-107) Carbon Dioxide Level 24 mmol/L (21-32) Anion Gap 18 (6-14) Blood Urea Nitrogen 97 mg/dL (8-26) Creatinine 9.7 mg/dL (0.7-1.3) Estimated GFR (Cockcroft-Gault) 6.9 BUN/Creatinine Ratio 10 (6-20) Glucose Level 92 mg/dL (70-99) Calcium Level 7.9 mg/dL (8.5-10.1) Total Bilirubin 0.7 mg/dL (0.2-1.0) Aspartate Amino Transf (AST/SGOT) 5 U/L (15-37) Alanine Aminotransferase (ALT/SGPT) 22 U/L (16-63) Alkaline Phosphatase 95 U/L (46-116) Creatine Kinase 391 U/L (39-308) Total Protein 7.9 g/dL (6.4-8.2) Albumin 3.7 g/dL (3.4-5.0) Albumin/Globulin Ratio 0.9 (1.0-1.7) Thyroid Stimulating Hormone (TSH) 0.302 uIU/mL (0.358-3.74) Urine Collection Type Unknown Urine Color Yellow Urine Clarity Clear Urine pH 5.0 (<5.0-8.0) Urine Specific [place] 1.020 (1.000-1.030) Urine Protein 30 mg/dL (NEG-TRACE) Urine Glucose (UA) Negative mg/dL (NEG) Urine Ketones (Stick) Negative mg/dL (NEG) Urine Blood Negative (NEG) Urine Nitrite Negative (NEG) Urine Bilirubin Negative (NEG) Urine Urobilinogen Dipstick 0.2 mg/dL (0.2 mg/dL) Urine Leukocyte Esterase Negative (NEG) Urine RBC Occ /HPF (0-2) Urine WBC Occ /HPF (0-4) Urine Squamous Epithelial Cells Occ /LPF Urine Bacteria 0 /HPF (0-FEW) Urine Hyaline Casts Few /HPF Urine Mucus Mod /LPF Glucose (Fingerstick) 84 mg/dL (70-99) Laboratory Tests Test 05/04/21 21:15 05/05/21 02:55 05/05/21 07:49 White Blood Count 12.9 x10^3/uL (4.0-11.0) Red Blood Count 4.28 x10^6/uL (4.30-5.70) Hemoglobin 14.4 g/dL (13.0-17.5) Hematocrit 42.1 % (39.0-53.0) Mean Corpuscular Volume 98 fL (79-100) Mean Corpuscular Hemoglobin 34 pg (25-35) Mean Corpuscular Hemoglobin Concent 34 g/dL (31-37) Red Cell Distribution Width 13.7 % (11.5-14.5) Platelet Count 267 x10^3/uL (140-400) Neutrophils (%) (Auto) 62 % (31-73) Lymphocytes (%) (Auto) 24 % (24-48) Monocytes (%) (Auto) 13 % (0-9) Eosinophils (%) (Auto) 0 % (0-3) Basophils (%) (Auto) 0 % (0-3) Neutrophils # (Auto) 8.0 x10^3/uL (1.8-7.7) Lymphocytes # (Auto) 3.1 x10^3/uL (1.0-4.8) Monocytes # (Auto) 1.7 x10^3/uL (0.0-1.1) Eosinophils # (Auto) 0.0 x10^3/uL (0.0-0.7) Basophils # (Auto) 0.0 x10^3/uL (0.0-0.2) Sodium Level 138 mmol/L (136-145) Potassium Level 4.0 mmol/L (3.5-5.1) Chloride Level 96 mmol/L (98-107) Carbon Dioxide Level 24 mmol/L (21-32) Anion Gap 18 (6-14) Blood Urea Nitrogen 97 mg/dL (8-26) Creatinine 9.7 mg/dL (0.7-1.3) Estimated GFR (Cockcroft-Gault) 6.9 BUN/Creatinine Ratio 10 (6-20) Glucose Level 92 mg/dL (70-99) Calcium Level 7.9 mg/dL (8.5-10.1) Total Bilirubin 0.7 mg/dL (0.2-1.0) Aspartate Amino Transf (AST/SGOT) 5 U/L (15-37) Alanine Aminotransferase (ALT/SGPT) 22 U/L (16-63) Alkaline Phosphatase 95 U/L (46-116) Creatine Kinase 391 U/L (39-308) Total Protein 7.9 g/dL (6.4-8.2) Albumin 3.7 g/dL (3.4-5.0) Albumin/Globulin Ratio 0.9 (1.0-1.7) Thyroid Stimulating Hormone (TSH) 0.302 uIU/mL (0.358-3.74) Urine Collection Type Unknown Urine Color Yellow Urine Clarity Clear Urine pH 5.0 (<5.0-8.0) Urine Specific [place] 1.020 (1.000-1.030) Urine Protein 30 mg/dL (NEG-TRACE) Urine Glucose (UA) Negative mg/dL (NEG) Urine Ketones (Stick) Negative mg/dL (NEG) Urine Blood Negative (NEG) Urine Nitrite Negative (NEG) Urine Bilirubin Negative (NEG) Urine Urobilinogen Dipstick 0.2 mg/dL (0.2 mg/dL) Urine Leukocyte Esterase Negative (NEG) Urine RBC Occ /HPF (0-2) Urine WBC Occ /HPF (0-4) Urine Squamous Epithelial Cells Occ /LPF Urine Bacteria 0 /HPF (0-FEW) Urine Hyaline Casts Few /HPF Urine Mucus Mod /LPF Glucose (Fingerstick) 84 mg/dL (70-99) Assessment/Plan Assessment/Plan IMP GAGE VS CKD-CR OF 12 TO 9.7 ELEVATED CPK LEVEL PROB CKD - CR OF 1.7 IN 2019 BUT COULD HAVE BEEN GAGE THEN-NO RENAL EVAL DONE THEN DEHYDRATION HX HTN N/V/D HX SUBSTANCE ABUSE PLAN HYDRATION HOLD HIS REVA-I SUGGEST GI EVALUATION LABS IN AM WILL FOLLOW CELINA EVANGELISTA MD May 05, 2021 14:15
[2021-05-05 15:00] VITALS: BP 140/80
[2021-05-05 19:00] VITALS: BP 146/90
--- NOTE | 2021-05-05 19:36 | NUR ---
Patient is verbally aggressive throughout this shift. manufacturing quality manager notified. Patient requesting at the beginning of this RN's shift to be allowed to sleep, RN advises him of DrLuis Alberto's visits and other unit procedures. Patient verbalizes to this RN how unsatisfied he is with the lack of care and information from DrLuis Alberto's he has received....stating "I saw 2 dr's, they were in and out of here and didn't even give me a chance to talk or listen to me, the other hospital made it seem like I was dying so that is why I got sent here, and you guys haven't done shit, I can lay around at home." RN explains the routine that the dr.'s typically have. He continue's to state that the food here sucks, nobody checks on him...etc. He was offered to speak to my brake repair supervisor but declined, this RN also asked patient if there is something I can do to make his stay "more pleasant", he continued to verbalize his dissatisfaction with everything here.
[2021-05-05] MEDS: oxyCODONE/APAP 5/325 1 TAB TABLET PO PRN (20:53)
[2021-05-05] MEDS: ZOLPIDEM 5 MG TABLET. PO PRN (20:53)
--- NOTE | 2021-05-05 21:03 | NUR ---
Patient upset with this nurse for waiting till he took his PRN Oxycodone and Ambien, he said, "I am not no pill popper, just give it to me, I am getting out of this fucking place! This is the worst Hospital ever! I just need for someone to see about my kidney and gall bladder infection!" This nurse waited Patiently till Patient took his medication and then left the room.
[2021-05-05 22:49] VITALS: BP 142/88
[2021-05-05 22:56] LABS: BARBITURATES NEG (NEG); BENZODIAZEPINES NEG (NEG); CANNABINOIDS POS (NEG); COCAINE NEG (NEG); METHADONE NEG (NEG); OPIATES NEG (NEG); PHENCYCLIDINE NEG (NEG)
[2021-05-05 22:58] LABS: AMPHETAMINE/METHAMPHETAMINE NEG (NEG)
[2021-05-06 02:39] VITALS: BP 149/84
[2021-05-06] MEDS: IV NORMAL SALINE 1000ML BAG 1,000 ML IV SCH (05:03)
[2021-05-06] MEDS: HEPARIN for SUB-Q USE 5,000 UNIT/ML VIAL. SQ SCH (05:27)
[2021-05-06 07:00] VITALS: BP 119/70
[2021-05-06 07:57] LABS: BASO # 0.1 x10^3/uL (0.0-0.2); BASO % 1 % (0-3); EOS # 0.1 x10^3/uL (0.0-0.7); EOS % 1 % (0-3); HEMATOCRIT 36.5 % (39.0-53.0); HEMOGLOBIN 12.5 g/dL (13.0-17.5); LYMPH # 3.4 x10^3/uL (1.0-4.8); LYMPH % 42 % (24-48); MEAN CORPUSCULAR HEMOGLOBIN 33 pg (25-35); MEAN CORPUSCULAR HGB CONC 34 g/dL (31-37); MEAN CORPUSCULAR VOLUME 97 fL (79-100); MONO # 1.1 x10^3/uL (0.0-1.1); MONO % 14 % (0-9); NEUT # 3.3 x10^3/uL (1.8-7.7); NEUT % 42 % (31-73); PLATELET COUNT 229 x10^3/uL (140-400); RED BLOOD COUNT 3.77 x10^6/uL (4.30-5.70); RED CELL DISTRIBUTION WIDTH 13.7 % (11.5-14.5)
--- NOTE | 2021-05-06 08:08 | PDOC ---
[employer] PROGRESS NOTE Date of Service DOS: DATE: 05/06/21 TIME: 08:05 Chief Complaint Chief Complaint GAGE versus chronic kidney disease Dehydration Hypertension Substance abuse History of Present Illness History of Present Illness 05/06/2021 Patient seen and examined Discussed with RN Chart reviewed Urinated and passed bowel movement this AM; denies hematuria, dysuria, melena, or blood in stool Patient agitated and feels he has not been well-informed of his condition and plan of care Feeling "fine" and asking to leave Discussed with oil field caser 05/05/2021 Patient seen and examined [place] discussed with RN Chart reviewed Discussed with oil field caser Vitals/I&O Vitals/I&O: Vital Signs Date Time Temp Pulse Resp B/P (MAP) Pulse Ox O2 Delivery O2 Flow Rate FiO2 05/06/21 07:00 98.3 74 18 119/70 (86) 98 Room Air 98.3 05/05/21 07:00 I & O 05/05/21 05/05/21 05/06/21 15:00 23:00 07:00 Intake Total 500 ml 360 ml Output Total 1050 ml 800 ml Balance -550 ml -440 ml Physical Exam General: Alert, Oriented X3, No acute distress Heart: Regular rate Abdomen: Normal bowel sounds, Soft, No tenderness Extremities: No clubbing Skin: No rashes Labs Labs: Laboratory Tests Test 05/05/21 17:26 05/05/21 22:18 05/06/21 06:15 Glucose (Fingerstick) 96 mg/dL (70-99) Urine Opiates Screen Neg (NEG) Urine Methadone Screen Neg (NEG) Urine Barbiturates Neg (NEG) Urine Phencyclidine Screen Neg (NEG) Urine Amphetamine/Methamphetamine Neg (NEG) Urine Benzodiazepines Screen Neg (NEG) Urine Cocaine Screen Neg (NEG) Urine Cannabinoids Screen Pos (NEG) Urine Ethyl Alcohol Neg (NEG) White Blood Count 8.0 x10^3/uL (4.0-11.0) Red Blood Count 3.77 x10^6/uL (4.30-5.70) Hemoglobin 12.5 g/dL (13.0-17.5) Hematocrit 36.5 % (39.0-53.0) Mean Corpuscular Volume 97 fL (79-100) Mean Corpuscular Hemoglobin 33 pg (25-35) Mean Corpuscular Hemoglobin Concent 34 g/dL (31-37) Red Cell Distribution Width 13.7 % (11.5-14.5) Platelet Count 229 x10^3/uL (140-400) Neutrophils (%) (Auto) 42 % (31-73) Lymphocytes (%) (Auto) 42 % (24-48) Monocytes (%) (Auto) 14 % (0-9) Eosinophils (%) (Auto) 1 % (0-3) Basophils (%) (Auto) 1 % (0-3) Neutrophils # (Auto) 3.3 x10^3/uL (1.8-7.7) Lymphocytes # (Auto) 3.4 x10^3/uL (1.0-4.8) Monocytes # (Auto) 1.1 x10^3/uL (0.0-1.1) Eosinophils # (Auto) 0.1 x10^3/uL (0.0-0.7) Basophils # (Auto) 0.1 x10^3/uL (0.0-0.2) Assessment and Plan Assessmemt and Plan Acute kidney injury on CKD? Secondary to dehydration vasomotor nephropathy, history hypertension substance abuse -Patient transferred from [facility] for acute kidney injury. -Has previous labs from 2020 with elevated creatinine around 2. Baseline unknown right now. Labs from outside hospital showed a creatinine of 12. Repeat here -Await nephrology consult -Urinalysis -Check bladder scan. Straight cath if needed -If retaining urine can try Flomax -DVT prophylaxis -Renal diet for now -Home meds resumed as indicated. Comment Review of Relevant I have reviewed the following items cherelle (where applicable) has been applied. Medications: Current Medications Medications (Trade) Dose Ordered Sig/Amy Route PRN Reason Start Time Stop Time Status Last Admin Dose Admin Amlodipine Besylate (Norvasc) 10 mg DAILY PO 05/05/21 09:00 05/05/21 09:04 Sodium Chloride 1,000 ml @ 125 mls/hr Q8H IV 05/05/21 12:15 05/06/21 05:03 Justifications for Admission Other Justification MAGY SERRATO III DO May 06, 2021 08:08
[2021-05-06 08:34] LABS: CALCIUM 7.9 mg/dL (8.5-10.1); CREATININE 1.7 mg/dL (0.7-1.3); GFR 51.7; MAGNESIUM 2.8 mg/dL (1.8-2.4); PHOSPHORUS 3.1 mg/dL (2.6-4.7); POTASSIUM 4.4 mmol/L (3.5-5.1)
[2021-05-06] MEDS: SENNOSIDES/DOCUSATE 8.6/50MG TABLET. PO SCH (08:48)
[2021-05-06 08:49] VITALS: BP 119/70
[2021-05-06] MEDS: PANTOPRAZOLE 40 MG TABLET.DR. PO SCH (08:49)
--- NOTE | 2021-05-06 11:50 | NUR ---
SW following. Discussed with RN, pt from home, room air, renal diet. Nephrology following. RN advised no SW needs, anticipates possible discharge home today. SW will continue to follow.
--- NOTE | 2021-05-06 12:54 | NUR ---
Patient escorted out by Twila TOBIN, patient refused 1100 vitals. Patient was not receptive to educational teaching. Patient verbally aggressive to both CNAs and this RN. Belongings all with patient. Patient rushing out of the hospital. IV and telemonitor discontinued. Patient was verbally abusive, towards staff.
--- NOTE | 2021-05-06 17:55 | DS ---
DATE OF DISCHARGE: 05/06/2021 ADMITTING DIAGNOSIS: Acute kidney injury. DISCHARGE DIAGNOSIS: Resolving acute kidney injury. HOSPITAL COURSE: The patient is a pleasant 50-year-old male presented with weakness, was noted to have a bump in his creatinine. We admitted him, gave him fluids and he only stayed about a day or two. Today, I saw and examined him. He is at his baseline. Nephrology was consulted. They signed off, said he could go home. We will plan to discharge. DISPOSITION: Home. ACTIVITY: As tolerated. DIET: Renal. DISCHARGE MEDICATIONS: Please see the MRAD. TOTAL TIME: 32 minutes. DODIE/MAMADOU DR: Maria Alejandra TID: [id number]
== END 2021-05-06 12:55 | disposition home or self-care (01) | DRG 640 ==
LOC: 5 NORTH 19:59
PROVIDERS: ADMIT Student in an Organized Health Care Education/Training Program; ATTEND Student in an Organized Health Care Education/Training Program
DX: E86.0 Dehydration (principal); N17.0 Acute kidney failure with tubular necrosis; Z82.49 Family history of ischemic heart disease and other diseases of the circulatory system; K21.9 Gastro-esophageal reflux disease without esophagitis; F19.10 Other psychoactive substance abuse, uncomplicated; I10 Essential (primary) hypertension
CPT/HCPCS: 36415; 51798; 76770; 80048; 80053; 80307; 81001; 82550; 82962; 83735; 84100; 84443; 85025; J1644; J2405; J7030; G0378